=== PATIENT | female | born 1965 | race Caucasian/White ===

== ENCOUNTER 2018-01-06 20:53 | Inpatient (IN) | payer MEDICAID, OTHER ==
--- NOTE | 2018-01-06 21:30 | ED PDOC ---
Arrival/HPI - General Chief Complaint: Abdominal Pain Time Seen by Provider: 01/06/18 21:18 Historian: Patient - History of Present Illness Narrative History of Present Illness (Text): 01/06/18 21:29 Nilay Ibrahim is a 52 year old female, with no significant past medical history, who presents to the Emergency department accompanied by relative complaining of abdominal pain. Relative states patient has been experiencing worsening right- sided abdominal pain since earlier today with multiple episodes of vomiting. Patient also reports she feels dizzy at times. Patient denies any fever, chills , chest pain, shortness of breath, diarrhea, urinary symptoms, back pain, neck pain, headache, or any other complaints. Symptom Onset: Gradual Symptom Course: Unchanged Activities at Onset: Light Context: Home Past Medical History - Provider Review Nursing Documentation Reviewed: Yes - Infectious Disease Hx of Infectious Diseases: None - Cardiac Hx Cardiac Disorders: Yes Hx Hypotension: Yes - Psychiatric Hx Substance Use: No Family/Social History - Physician Review Nursing Documentation Reviewed: Yes Family/Social History: Unknown Family HX Smoking Status: Never Smoked Hx Alcohol Use: No Hx Substance Use: No Allergies/Home Meds Allergies/Adverse Reactions: Allergies No Known Allergies Allergy (Verified 01/06/18 21:20) Home Medications: Home Meds Medication Instructions Recorded Confirmed No Known Home Med 01/06/18 01/06/18 Review of Systems - Physician Review All systems were reviewed & negative as marked: Yes - Review of Systems Constitutional: Normal. absent: Fevers Eyes: Normal ENT: Normal Respiratory: Normal. absent: SOB, Cough Cardiovascular: Normal. absent: Chest Pain Gastrointestinal: Abdominal Pain, Vomiting Genitourinary Female: Normal. absent: Dysuria, Frequency, Hematuria, Urine Output Changes Musculoskeletal: Normal. absent: Back Pain, Neck Pain Skin: Normal. absent: Rash Neurological: Dizziness. absent: Headache Endocrine: Normal Hemo/Lymphatic: Normal Psychiatric: Normal Physical Exam Vital Signs Reviewed: Yes Vital Signs Temp Pulse Resp BP Pulse Ox 01/07/18 01:37 53 L 14 133/64 96 01/07/18 00:49 55 L 20 137/68 94 L 01/06/18 21:24 98.2 F 47 L 16 153/82 H 95 Temperature: Afebrile Blood Pressure: Normal Pulse: Regular Respiratory Rate: Normal Appearance: Positive for: Well-Appearing, Non-Toxic Mental Status: Positive for: Alert and Oriented X 3 - Systems Exam Head: Present: Atraumatic, Normocephalic Pupils: Present: PERRL Extroacular Muscles: Present: EOMI Conjunctiva: Present: Normal Mouth: Present: Moist Mucous Membranes Neck: Present: Normal Range of Motion. No: Meningeal Signs, MIDLINE TENDERNESS , Paraspinal Tenderness Respiratory/Chest: Present: Clear to Auscultation, Good Air Exchange. No: Respiratory Distress, Accessory Muscle Use Cardiovascular: Present: Regular Rate and Rhythm, Normal S1, S2. No: Murmurs Abdomen: Present: Tenderness (Right-sided abdominal tenderness). No: Distention , Peritoneal Signs Back: Present: Normal Inspection. No: CVA Tenderness, Midline Tenderness, Paraspinal Tenderness Upper Extremity: Present: Normal Inspection. No: Cyanosis, Edema Lower Extremity: Present: Normal Inspection. No: Edema Neurological: Present: GCS=15, CN II-XII Intact, Speech Normal, Motor Func Grossly Intact, Normal Sensory Function, Normal Cerebellar Funct Skin: Present: Warm, Dry, Normal Color. No: Rashes Psychiatric: Present: Alert, Oriented x 3, Normal Insight, Normal Concentration Medical Decision Making ED Course and Treatment: 01/06/18 21:29 Impression: 52 year old female brought in for right-sided abdominal pain, vomiting, and dizziness. Plan: -- CT Abdomen and Pelvis with IV contrast -- EKG -- Chest X-ray -- Labs, lipase -- Urinalysis -- Reassess and disposition Progress Notes: 01/06/18 22:16 Reviewed EKG, sinus bradycardia at 46 bpm. Incomplete RBBB. Non-specific ST/T wave changes. 01/07/18 00:04 Chest X-ray reviewed, shows no acute processes. Spoke with [facility] radiologist, regarding CT scan findings. CT Abdomen and Pelvis shows: Lung bases: Mild bibasilar dependent atelectasis. ABDOMEN: Liver: Unremarkable. No mass. Gallbladder and bile ducts: Unremarkable. No calcified stones. No ductal dilation. Pancreas: Unremarkable. No mass. No ductal dilation. Spleen: Unremarkable. No splenomegaly. Adrenals: Unremarkable. No mass. Kidneys and ureters: Unremarkable. No solid mass. No hydronephrosis. Stomach and bowel: Unremarkable. No obstruction. No mucosal thickening. PELVIS: Appendix: Normal appendix. Bladder: Unremarkable. No mass. Reproductive: 22 cm x 18 cm x 14 cm cystic mass with mural nodularity which appears to be arising from the right ovary. IUD in the uterus. Left ovary unremarkable. ABDOMEN and PELVIS: Intraperitoneal space: Small amount of free fluid in the pelvis. No free air. Bones/joints: Levoconvex scoliosis of the lumbar spine. Multilevel degenerative changes. No acute fracture. No dislocation. Soft tissues: Unremarkable. Vasculature: Unremarkable. No abdominal aortic aneurysm. Lymph nodes: Unremarkable. No enlarged lymph nodes. IMPRESSION: 1. 22 cm x 18 cm x 14 cm cystic mass with mural nodularity which appears to be arising from the right ovary. 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 2. Small amount of free fluid in the pelvis. 3. Additional chronic/incidental findings as described above. 01/07/18 00:13 Case discussed with medical historian clinical education consultant, who is aware and agrees with plan. Case discussed with Dr. Alvarenga, who is aware and agrees with plan. Accepts pt in to hospitalist service. Pt will be admitted to [facility] for leukocytosis, abdominal pain, and abdominal mass. - Lab Interpretations Lab Results: 01/06/18 22:13 01/06/18 22:13 Lab Results 01/06/18 22:26: Urine Color Yellow, Urine Appearance Clear, Urine pH 6.0, Ur Specific [place] >= 1.030, Urine Protein Trace H, Urine Glucose (UA) Negative, Urine Ketones 15 H, Urine Blood Trace-intact H, Urine Nitrate Negative, Urine Bilirubin Negative, Urine Urobilinogen 0.2, Ur Leukocyte Esterase Negative, Urine RBC 1 - 3, Urine WBC Negative, Ur Epithelial Cells 0 - 2, Urine Bacteria Trace, Hyaline Casts 0 - 2 01/06/18 22:13: Troponin I < 0.01 01/06/18 22:13: WBC 17.4 H, RBC 5.38, Hgb 15.5, Hct 45.6, MCV 84.8, MCH 28.8, MCHC 34.0, RDW 13.6, Plt Count 246, MPV 10.9 01/06/18 22:13: Sodium 145, Potassium 3.9, Chloride 107, Carbon Dioxide 24, Anion Gap 17, BUN 10, Creatinine 0.6 L, Est GFR ( Amer) > 60, Est GFR ( Non-Af Amer) > 60, Random Glucose 142 H, Calcium 9.2, Total Bilirubin 0.5, AST 16, ALT 19, Alkaline Phosphatase 83, Total Protein 7.7, Albumin 4.3, Globulin 3.4, Albumin/Globulin Ratio 1.3, Lipase 52 I have reviewed the lab results: Yes - RAD Interpretation Radiology Orders: 01/06/18 21:32 CHEST PORTABLE [RAD] Stat 01/06/18 21:33 ABD & PELVIS IV CONTRAST ONLY [CT] Stat [employer] Wing [employer] Flight Engineer: ED Physician, Radiologist - EKG Interpretation Interpreted by ED Physician: Yes Type: 12 lead EKG - Medication Orders Current Medication Orders: Hydromorphone HCl (Dilaudid) 0.5 mg IVP Q6H PRN PRN Reason: Pain, severe (8-10) Last Admin: 01/07/18 04:33 Dose: 0.5 mg MAR Pain Assessment Document 01/07/18 04:33 ED (Rec: 01/07/18 04:34 ED [facility] Pain Reassessment Is this a pain reassessment? Yes Presence of Pain Presence of Pain Yes Pain Scale Used Pain Scale Used Numeric Location Pain Location Body Site Abdomen Description Description Intermittent Intensity of Pain at present 8 Pain Behavior Facial Grimacing Aggravating Factors None Alleviating Factors/Management Medication Techniques Alleviating Factors Medication IVP Administration Document 01/07/18 04:33 ED (Rec: 01/07/18 04:34 [facility]) Charges for Administration # of IVP Administrations 1 Sodium Chloride (Sodium Chloride 0.9%) 1,000 mls @ 50 mls/hr IV .Q20H CELESTINE Last Admin: 01/07/18 01:46 Dose: 50 mls/hr eMAR Start Stop Document 01/07/18 01:46 CNR (Rec: 01/07/18 01:46 CNR [id number]) Intravenous Solution Start Date 01/07/18 Start Time 01:46 Ondansetron HCl (Zofran Inj) 4 mg IVP Q4H PRN PRN Reason: Nausea/Vomiting Last Admin: 01/07/18 04:33 Dose: 4 mg IVP Administration Document 01/07/18 04:33 ED (Rec: 01/07/18 04:33 [facility] Charges for Administration # of IVP Administrations 1 Pantoprazole Sodium (Protonix Ec Tab) 40 mg PO 0600 CELE[facility]INE Discontinued Medications Hydromorphone HCl (Dilaudid) 1 mg IVP STAT STA Stop: 01/07/18 00:35 Last Admin: 01/07/18 00:41 Dose: 1 mg MAR Pain Assessment Document 01/07/18 00:41 CNR (Rec: 01/07/18 00:42 CNR [id number]) Pain Reassessment Is this a pain reassessment? No IVP Administration Document 01/07/18 00:41 CNR (Rec: 01/07/18 00:42 CNR [id number]) Charges for Administration # of IVP Administrations 1 Metronidazole (Flagyl) 500 mg in 100 mls @ 100 mls/hr IVPB STAT STA PRN Reason: Protocol Stop: 01/07/18 01:05 Last Admin: 01/07/18 00:42 Dose: 100 mls/hr eMAR Start Stop Document 01/07/18 00:42 CNR (Rec: 01/07/18 00:42 CNR [id number]) Intravenous Solution Start Date 01/07/18 Start Time 00:42 Ceftriaxone Sodium (Rocephin 1 Gram Ivpb) 1 gm in 100 mls @ 200 mls/hr IV ONCE STA PRN Reason: Protocol Stop: 01/07/18 00:34 Last Admin: 01/07/18 00:14 Dose: 200 mls/hr eMAR Start Stop Document 01/07/18 00:14 CNR (Rec: 01/07/18 00:15 CNR [id number]) Intravenous Solution Start Date 01/07/18 Start Time 00:15 End Date 01/07/18 End time 00:40 Total Infusion Time 25 Ketorolac Tromethamine (Toradol) 30 mg IVP STAT STA Stop: 01/06/18 23:00 Last Admin: 01/06/18 23:01 Dose: 30 mg MAR Pain Assessment Document 01/06/18 23:01 CNR (Rec: 01/06/18 23:01 CNR [id number]) Pain Reassessment Is this a pain reassessment? No IVP Administration Document 01/06/18 23:01 CNR (Rec: 01/06/18 23:01 CNR [id number]) Charges for Administration # of IVP Administrations 1 Morphine Sulfate (Morphine) 4 mg IVP STAT STA Stop: 01/06/18 23:41 Last Admin: 01/06/18 23:43 Dose: 4 mg MAR Pain Assessment Document 01/06/18 23:43 CNR (Rec: 01/06/18 23:43 CNR [id number]) Pain Reassessment Is this a pain reassessment? No IVP Administration Document 01/06/18 23:43 CNR (Rec: 01/06/18 23:43 CNR [id number]) Charges for Administration # of IVP Administrations 1 Ondansetron HCl (Zofran Inj) 4 mg IVP ONCE ONE Stop: 01/06/18 23:41 Last Admin: 01/06/18 23:43 Dose: 4 mg IVP Administration Document 01/06/18 23:43 CNR (Rec: 01/06/18 23:43 CNR [id number]) Charges for Administration # of IVP Administrations 1 Pneumococcal Polyvalent Vaccine (Pneumovax 23 Vaccine) 0.5 ml IM .ONCE ONE Stop: 01/07/18 04:24 - Scribe Statement The provider has reviewed the documentation as recorded by the Scribashkan Andersen All medical record entries made by the Scribashkan were at my direction and personally dictated by me. I have reviewed the chart and agree that the record accurately reflects my personal performance of the history, physical exam, medical decision making, and the department course for this patient. I have also personally directed, reviewed, and agree with the discharge instructions and disposition. Disposition/Present on Arrival - Present on Arrival Any Indicators Present on Arrival: No History of DVT/PE: No History of Uncontrolled Diabetes: No Urinary Catheter: No History of Decub. Ulcer: No History Surgical Site Infection Following: None - Disposition Have Diagnosis and Disposition been Completed?: Yes Diagnosis: Abdominal pain, Leukocytosis, Ovarian mass, right Disposition: HOSPITALIZED Disposition Time: 00:29 Patient Problems: Current Active Problems Problem Status Onset Abdominal pain Acute Leukocytosis Acute Ovarian mass, right Acute Condition: STABLE
[2018-01-06] MEDS ORDERED: Iohexol 350 MG/100 ML VIAL ONE (21:40)
[2018-01-06 22:16] LABS: HEMOGLOBIN 15.5 g/dL (12.0-16.0); MEAN CELL VOLUME 84.8 fl (80.0-105.0); MEAN CORPUSCULAR HEMOGLOBIN 28.8 pg (25.0-35.0); MEAN PLATELET VOLUME 10.9 fl (7.0-11.0); RBC 5.38 10^6/uL (3.5-6.1); RED CELL DISTRIBUTION WIDTH 13.6 % (11.5-14.5); WHITE BLOOD COUNT 17.4 10^3/ul (4.5-11.0)
[2018-01-06 22:26] LABS: ALB/GLOB RATIO 1.3 (1.1-1.8); ALBUMIN 4.3 g/dL (3.0-4.8); ALT/SGPT 19 U/L (7-56); AST/SGOT 16 U/L (14-36); BLOOD UREA NITROGEN 10 mg/dL (7-21); CALCIUM 9.2 mg/dL (8.4-10.5); GFR AFRICAN-AMERICAN > 60; GFR NON-AFRICAN AMERICAN > 60; LIPASE 52 U/L (23-300)
[2018-01-06 22:31] LABS: URINE APPEARANCE CLEAR (CLEAR); URINE BILIRUBIN NEGATIVE (NEGATIVE); URINE BLOOD TRACE-INTACT (NEGATIVE); URINE COLOR YELLOW (YELLOW); URINE GLUCOSE (UA) NEGATIVE (NEGATIVE); URINE LEUKOCYTE ESTERASE NEGATIVE Leu/uL (NEGATIVE); URINE PROTEIN TRACE mg/dL (<30 mg/dL); URINE UROBILINOGEN 0.2 E.U./dL (<1 E.U./dL)
[2018-01-06 22:37] LABS: URINE BACTERIA TRACE (NEG); URINE EPITHELIAL CELLS 0 - 2 /hpf (0-5); URINE HYALINE CAST 0 - 2 /hpf; URINE WBC NEGATIVE /hpf (0-6)
[2018-01-06] MEDS ORDERED: Morphine 4 mg/ml ISec IVP STA (23:40)
[2018-01-06] MEDS ORDERED: Morphine 4 mg/ml ISec ONE (23:42)
[2018-01-07] MEDS ORDERED: cefTRIAXone 1 gm 1 GM/100 ML BAG IV STA (00:05)
[2018-01-07] MEDS ORDERED: metroNIDAZOLE IV 500 mg/100 ml 500 MG/100 ML BAG IVPB STA (00:06)
[2018-01-07] MEDS ORDERED: HYDROmorphone 1 mg/ml ISec IVP STA (00:34)
[2018-01-07] MEDS: Sodium Chloride 0.9% 1,000 ML IV SCH ×2 (01:46→22:02)
--- NOTE | 2018-01-07 02:36 | CP.PCM.HP ---
<MiltonMiguelito Marley - Last Filed: 01/07/18 05:28> History of Present Illness - History of Present Illness History of Present Illness: Miguelito Rose D.O. PGY-1, Internal Medicine Resident, History and Physical Nilay Ibrahim is a 52 year old female, with no significant past medical history, who presents to the Emergency department accompanied by relative complaining of abdominal pain. Patient has been experiencing 10/10 worsening right-sided abdominal pain since earlier today with multiple episodes of vomiting. Pt reports that the contents are non bloody and non bilious. Patient also reports she feels dizzy. Patient denies any fever, chills, chest pain, shortness of breath, diarrhea, urinary symptoms, back pain, neck pain, headache, or any other complaints. Pt reports taking 2 Alleve followed by 2 Advil at about 2pm neither of which helped. Pt denies sick contacts, or eating anything new. 12 point review of systems negative. PMH: denies any significant hx PSH: denies FH: denies Social Hx: occasional smoker, occasional alcohol, denies drugs, lives with her 2 children Allergies: NKDA Meds: denies Present on Admission - Present on Admission Any Indicators Present on Admission: No Past Patient History - Infectious Disease Hx of Infectious Diseases: None - Past Social History Smoking Status: Current Some Days Smoker - CARDIAC Hx Cardiac Disorders: Yes Hx Hypotension: Yes - PSYCHIATRIC Hx Substance Use: No - SURGICAL HISTORY Hx Surgeries: No Meds Allergies/Adverse Reactions: Allergies Allergy/AdvReac Type Severity Reaction Status Date / Time No Known Allergies Allergy Verified 01/06/18 21:20 Physical Exam - Head Exam Head Exam: ATRAUMATIC - Eye Exam Eye Exam: EOMI, PERRL - ENT Exam ENT Exam: Mucous Membranes Moist - Neck Exam Neck exam: Positive for: Normal Inspection - Respiratory Exam Respiratory Exam: Clear to Auscultation Bilateral, NORMAL BREATHING PATTERN - Cardiovascular Exam Cardiovascular Exam: REGULAR RHYTHM, RRR, +S1, +S2 - GI/Abdominal Exam GI & Abdominal Exam: Normal Bowel Sounds, Soft, Tenderness. absent: Guarding, Rebound, Rigid - Extremities Exam Extremities exam: Positive for: full ROM, normal inspection. Negative for: calf tenderness - Neurological Exam Neurological exam: Alert, CN II-XII Intact, Oriented x3 - Skin Skin Exam: Normal Color Results - Vital Signs Recent Vital Signs: Last Vital Signs Temp 98.2 F 01/06/18 21:24 Pulse 53 L 01/07/18 01:37 Resp 14 01/07/18 01:37 BP 133/64 01/07/18 01:37 Pulse Ox 96 01/07/18 01:37 - Labs Result Diagrams: 01/06/18 22:13 01/06/18 22:13 Assessment & Plan - Assessment and Plan (Free Text) Assessment: Nilay Ibrahim is a 52 year old female, with no significant past medical history, who presents to the Emergency department accompanied by relative complaining of abdominal pain. Pt currently is being treated for abdominal pain, leukocytosis, and an abdominal mass. Plan: Abdominal pain, vomiting -ordered c. diff panel -diladid 0.5mg q4 for pain -lipase 52 -start Cipro -start metronidazole -trops 0.01, continue to trend -consult PROPOS[employer] WRITER Onc, Dr Vo -consult ID, -CMP ordered -Lipid panel ordered, awaiting results -ordered Mg, Phos, awaiting results -ordered TSH, awaiting results -ordered urine culture Leukocytosis -WBC 17.4 -ordered blood cx, awaiting results -started cipro and metronidazole -ordered c. diff -continue to keep pt hydrated, IV NS 50ml/hr -ID consulted, Dr Acosta -CBC ordered Yellow Sputum Production -start Ceftriaxone -start vanc Abdominal mass -cystic mass arising from the right ovary, most likely incidental finding -continue pain management -order 19-9, Elevated glucose -glucose 142 -HA1C ordered Pt was seen, examined, and case was discussed at length with attending physician Dr Alvarenga. Miguelito Rose PGY-1 <Merced Alvarenga - Last Filed: 01/07/18 05:59> Results - Vital Signs Recent Vital Signs: Last Vital Signs Temp 97.8 F 01/07/18 04:16 Pulse 49 L 01/07/18 04:16 Resp 20 01/07/18 04:16 BP 141/57 L 01/07/18 04:16 Pulse Ox 96 01/07/18 01:37 - Labs Result Diagrams: 01/06/18 22:13 01/06/18 22:13 Attending/Attestation - Attestation I have personally seen and examined this patient.: Yes I have fully participated in the care of the patient.: Yes I have reviewed all pertinent clinical information: Yes Notes (Text): 01/07/18 05:52 Patient was seen when she was in bed # 4 in the ER. Agree with history, physical examination, assessment and plan. Following should be noted. RLQ abdominal pain since 1 PM . Similar pain in the past. 10---->8 now. No radiation. Sharp , continuous. Nausea. Vomiting. Dizzy. Voluntary weight loss. No anorexia. Sinus bradycardia, incomplete RBBB. Leukocytosis. Hyperglycemia. Small free fluid in pelvis IUD Right ovarian mass, [id number].? cystadenocarcinoma. PMH: Obesity. HTN. IUD FHx heart disease.
[2018-01-07] MEDS ORDERED: Pneumococcal 23-Valent Vaccine IM ONE (04:23)
[2018-01-07] MEDS: HYDROmorphone 0.5 mg/0.5 ml ISec IVP PRN ×4 (04:33→22:17)
--- NOTE | 2018-01-07 05:35 | CP.PCM.CON ---
Addendum entered and electronically signed by Miguelito Rose DO 01/07/18 06: 03: please disregard this note Original Note: <Miguelito Rose - Last Filed: 01/07/18 05:39> History of Present Illness - History of Present Illness History of Present Illness: Miguelito Rose PGY-1 Internal Medicine Resident, ICU consult note for Dr Fernandes. Ms. Valverde is a 73-year-old female the past medical history of COPD on home O2, asthma, bronchitis, DM 2, CAD S/P 8 stents, and hyperlipidemia who presented to the ED with shortness of breath, cough, blood tinged sputum for 2 days on December 26. Pt underwent treatment in the ICU for hypoxic respiratory failure and NSTEMI. Once pt was stable sbe was transferred to tCU on 12/31/17. Today a rapid respince was called at around 9:53pm by the nursing staff because the pt was non responsive. She had been becoming non responsive through the day. Pt would not respond to painful stimuli. Per nursing, pt was on BiPAP throughout the day, but now she was desating into the lower 80's with BiPAP. The decision was made to intubate her and transfer her to the ICU. 12 point ROS was elicited but not obtained due mental status. PMH: As above PSH: Unremarkable Meds: As per MAR Allergies: As noted on [employer] SHX: Former smoker, occasional alcohol use, denies drug use. On home O2, all day. Uses BiPAP at night. FH X: Heart disease and diabetes Past Patient History - Infectious Disease Hx of Infectious Diseases: None - Past Medical History & Family History Past Medical History?: No - Past Social History Smoking Status: Current Some Days Smoker - CARDIAC Hx Cardiac Disorders: Yes Hx Hypotension: Yes - MUSCULOSKELETAL/RHEUMATOLOGICAL Hx Falls: No - PSYCHIATRIC Hx Substance Use: No - SURGICAL HISTORY Hx Surgeries: No Meds Allergies/Adverse Reactions: Allergies Allergy/AdvReac Type Severity Reaction Status Date / Time No Known Allergies Allergy Verified 01/06/18 21:20 - Medications Medications: Current Medications Hydromorphone HCl (Dilaudid) 0.5 mg IVP Q6H PRN PRN Reason: Pain, severe (8-10) Last Admin: 01/07/18 04:33 Dose: 0.5 mg Sodium Chloride (Sodium Chloride 0.9%) 1,000 mls @ 50 mls/hr IV .Q20H [facility] Last Admin: 01/07/18 01:46 Dose: 50 mls/hr Ondansetron HCl (Zofran Inj) 4 mg IVP Q4H PRN PRN Reason: Nausea/Vomiting Last Admin: 01/07/18 04:33 Dose: 4 mg Pantoprazole Sodium (Protonix Ec Tab) 40 mg PO 0600 [facility] Physical Exam - Constitutional Appears: In Acute Distress, Chronically Ill - Head Exam Head Exam: ATRAUMATIC, NORMAL INSPECTION, NORMOCEPHALIC - Eye Exam Eye Exam: EOMI - ENT Exam ENT Exam: Mucous Membranes Moist - Neck Exam Neck exam: Positive for: Normal Inspection - Respiratory Exam Respiratory Exam: Clear to Auscultation Bilateral, NORMAL BREATHING PATTERN - Cardiovascular Exam Cardiovascular Exam: REGULAR RHYTHM, RRR, +S1, +S2 - GI/Abdominal Exam GI & Abdominal Exam: Normal Bowel Sounds, Soft, Tenderness - Extremities Exam Extremities exam: Negative for: calf tenderness, pedal edema - Back Exam Back exam: NORMAL INSPECTION. absent: CVA tenderness (L), CVA tenderness (R) - Neurological Exam Neurological exam: Alert, CN II-XII Intact, Oriented x3 - Psychiatric Exam Psychiatric exam: Normal Affect, Normal Mood - Skin Skin Exam: Normal Color Results - Vital Signs Recent Vital Signs: Last Vital Signs Temp 97.8 F 01/07/18 04:16 Pulse 49 L 01/07/18 04:16 Resp 20 01/07/18 04:16 BP 141/57 L 01/07/18 04:16 Pulse Ox 96 01/07/18 01:37 - Labs Result Diagrams: 01/06/18 22:13 01/06/18 22:13 Assessment & Plan - Assessment and Plan (Free Text) Assessment: 73 yo female with a pertinent medical history of COPD and recent NSTEMI under ICU management for hypercapneic hypoxic respiratory failure needing propofol drip 2/2 AMS. R/o AMI consider infectious causes consider CVA Hx asthma, bronchitis, DM2, CAD s/p 8 stents, HLD Plan: Plan: Plan: -intubated with propofol drip, vent settings PRVC, TV 350, RR 16, PEEP 5, FiO2 60 -EKG -trops stat, and next AM -blood cultures ordered -urine cultures ordered -ordered ABG -stat CMP, CBC -AM labs ordered -will follow up after further information is obtained Case s/d with Dr Colette Rose PGY-1 <Merced Alvarenga - Last Filed: 01/09/18 22:20> Results - Vital Signs Recent Vital Signs: Last Vital Signs Temp 98.3 F 01/09/18 06:00 Pulse 68 01/09/18 10:00 Resp 20 01/09/18 06:00 BP 106/50 L 01/09/18 06:00 Pulse Ox 93 L 01/09/18 06:00 - Labs Result Diagrams: 01/09/18 06:00 01/09/18 06:00 Labs: Laboratory Results - last 24 hr 01/07/18 01/08/18 01/08/18 21:10 07:13 11:25 WBC RBC Hgb Hct MCV MCH MCHC RDW Plt Count MPV Gran % Lymph % (Auto) Davis % (Auto) Eos % (Auto) Baso % (Auto) Gran # Lymph # (Auto) Davis # (Auto) Eos # (Auto) Baso # (Auto) Sodium Potassium Chloride Carbon Dioxide Anion Gap BUN Creatinine Est GFR ( Amer) Est GFR (Non-Af Amer) POC Glucose (mg/dL) 116 H 126 H 144 H Random Glucose Calcium Phosphorus Magnesium Total Bilirubin AST ALT Alkaline Phosphatase Total Protein Albumin Globulin Albumin/Globulin Ratio 01/08/18 01/08/18 01/09/18 16:03 21:29 06:00 WBC 15.3 H RBC 4.41 Hgb 12.4 Hct 38.4 MCV 87.1 MCH 28.1 MCHC 32.3 RDW 13.6 Plt Count 212 MPV 11.0 Gran % 82.9 H Lymph % (Auto) 10.1 L Davis % (Auto) 6.6 H Eos % (Auto) 0.3 L Baso % (Auto) 0.1 Gran # 12.71 H Lymph # (Auto) 1.5 Davis # (Auto) 1.0 H Eos # (Auto) 0.1 Baso # (Auto) 0.01 Sodium Potassium Chloride Carbon Dioxide Anion Gap BUN Creatinine Est GFR ( Amer) Est GFR (Non-Af Amer) POC Glucose (mg/dL) 105 120 H Random Glucose Calcium Phosphorus Magnesium Total Bilirubin AST ALT Alkaline Phosphatase Total Protein Albumin Globulin Albumin/Globulin Ratio 01/09/18 01/09/18 06:00 07:11 WBC RBC Hgb Hct MCV MCH MCHC RDW Plt Count MPV Gran % Lymph % (Auto) Davis % (Auto) Eos % (Auto) Baso % (Auto) Gran # Lymph # (Auto) Davis # (Auto) Eos # (Auto) Baso # (Auto) Sodium 142 Potassium 3.6 Chloride 105 Carbon Dioxide 27 Anion Gap 13 BUN 9 Creatinine 0.6 L Est GFR ( Amer) > 60 Est GFR (Non-Af Amer) > 60 POC Glucose (mg/dL) 101 Random Glucose 97 Calcium 8.1 L Phosphorus 2.1 L Magnesium 1.9 Total Bilirubin 0.7 AST 16 ALT 20 Alkaline Phosphatase 63 Total Protein 6.5 Albumin 3.5 Globulin 3.0 Albumin/Globulin Ratio 1.1 Attending/Attestation - Attestation I have personally seen and examined this patient.: Yes I have fully participated in the care of the patient.: Yes I have reviewed all pertinent clinical information: Yes
[2018-01-07] MEDS: Pantoprazole 40 mg EC Tab PO SCH (05:56)
[2018-01-07 06:31] LABS: BASO # 0.02 K/mm3 (0.0-2.0); BASO % 0.1 % (0.0-3.0); EOS % 0.1 % (1.5-5.0); GRAN # 17.1 (1.4-6.5); GRAN % 89.4 % (50.0-68.0); HEMOGLOBIN 14.5 g/dL (12.0-16.0); LYMPH # 1.3 (1.2-3.4); LYMPH % 6.8 % (22.0-35.0); MEAN CELL VOLUME 86.1 fl (80.0-105.0); MEAN CORPUSCULAR HEMOGLOBIN 28.5 pg (25.0-35.0); MEAN CORPUSCULAR HGB CONC 33.1 g/dl (31.0-37.0); MEAN PLATELET VOLUME 11.5 fl (7.0-11.0); MONO # 0.7 (0.1-0.6); MONO % 3.6 % (1.0-6.0); RBC 5.09 10^6/uL (3.5-6.1); RED CELL DISTRIBUTION WIDTH 13.6 % (11.5-14.5); WHITE BLOOD COUNT 19.1 10^3/ul (4.5-11.0)
[2018-01-07 06:59] LABS: TROPONIN I 0.01 ng/mL
[2018-01-07 07:00] LABS: ALB/GLOB RATIO 1.2 (1.1-1.8); ALBUMIN 3.8 g/dL (3.0-4.8); ALT/SGPT 21 U/L (7-56); AST/SGOT 15 U/L (14-36); BLOOD UREA NITROGEN 10 mg/dL (7-21); CALCIUM 8.5 mg/dL (8.4-10.5); GFR AFRICAN-AMERICAN > 60; GFR NON-AFRICAN AMERICAN > 60
--- NOTE | 2018-01-07 08:41 | RAD ---
Date of service: 01/06/2018 HISTORY: Abdominal pain COMPARISON: No prior. FINDINGS: LUNGS: The lungs are clear. There are low lung volumes. PLEURA: No significant pleural effusion identified, no pneumothorax apparent. CARDIOVASCULAR: Normal. OSSEOUS STRUCTURES: No significant abnormalities. VISUALIZED UPPER ABDOMEN: Normal. OTHER FINDINGS: None. IMPRESSION: No active pulmonary disease. Low lung volumes may be related to poor inspiratory effort.
--- NOTE | 2018-01-07 08:45 | CT ---
Date of service: 01/06/2018 PROCEDURE: CT Abdomen and Pelvis with contrast HISTORY: abdominal pain COMPARISON: None. TECHNIQUE: Contrast dose: 100 cc of Omni 350 Radiation dose: Total exam DLP = 1325 mGy-cm. This CT exam was performed using one or more of the following dose reduction techniques: Automated exposure control, adjustment of the mA and/or kV according to patient size, and/or use of iterative reconstruction technique. FINDINGS: LOWER THORAX: Unremarkable. LIVER: Unremarkable. No gross lesion or ductal dilatation. GALLBLADDER AND BILE DUCTS: Unremarkable. PANCREAS: Unremarkable. No gross lesion or ductal dilatation. SPLEEN: Unremarkable. ADRENALS: Unremarkable. No mass. KIDNEYS AND URETERS: Unremarkable. No hydronephrosis. No solid mass. VASCULATURE: Unremarkable. No aortic aneurysm. BOWEL: Unremarkable. No obstruction. No gross mural thickening. APPENDIX: Normal appendix. PERITONEUM: Unremarkable. No free fluid. No free air. LYMPH NODES: Unremarkable. No enlarged lymph nodes. BLADDER: Unremarkable. REPRODUCTIVE: There is a large cystic mass that appears to arise from the right ovary. This measures 22 mm wide by 13.6 cm AP by 18 cm in height. This is suspicious for an ovarian cystadenocarcinoma BONES: No acute fracture. OTHER FINDINGS: The report concurs with the preliminary [facility] report IMPRESSION: There is a large cystic mass that appears to arise from the right ovary. This measures 22 mm wide by 13.6 cm AP by 18 cm in height. This is suspicious for an ovarian cystadenocarcinoma
--- NOTE | 2018-01-07 09:29 | CARD ---
APPROVED REPORT Date of service: 01/06/2018 EKG Measurement Heart [id number] VT 144P31 [id number] <Conclusion> Marked sinus bradycardia Incomplete right bundle branch block
[2018-01-07 10:31] LABS: URINE BILIRUBIN NEGATIVE (NEGATIVE); URINE BLOOD SMALL (NEGATIVE); URINE GLUCOSE (UA) NEGATIVE (NEGATIVE); URINE LEUKOCYTE ESTERASE NEGATIVE Leu/uL (NEGATIVE); URINE PROTEIN TRACE mg/dL (<30 mg/dL); URINE UROBILINOGEN 0.2 E.U./dL (<1 E.U./dL)
[2018-01-07 10:39] LABS: URINE APPEARANCE SL CLOUDY (CLEAR); URINE COLOR YELLOW (YELLOW)
[2018-01-07 10:42] LABS: URINE AMORPHOUS SEDIMENT SMALL; URINE BACTERIA LARGE (NEG); URINE RBC 0 - 2 /hpf (0-2); URINE WBC 0 - 2 /hpf (0-6)
[2018-01-07 12:57] LABS: TROPONIN I < 0.01 ng/mL
[2018-01-07] MEDS: Piperacillin/Tazobact 3.375 gm 100 ML IVPB SCH ×3 (13:33→23:48)
--- NOTE | 2018-01-07 14:50 | CON ---
DATE: 01/07/2018 LOCATION: The patient was seen earlier this morning in room 360. CHIEF COMPLAINT: Right abdominal pain times several days. HISTORY OF PRESENT ILLNESS: This is a 52-year-old female, morbid obesity with BMI of 41 with past medical history which is noncontributory. She was admitted with abdominal pain. Abdominal pain is right sided and associated with nausea and vomiting. No diarrhea or constipation. No dysuria or frequency. No headaches or blurred vision, neck pain or sore throat. PAST MEDICAL HISTORY: Significant for morbid obesity with a BMI of 41. PAST SURGICAL HISTORY: Noncontributory. ALLERGIES: THE PATIENT HAS NO KNOWN ALLERGIES. MEDICATIONS: Takes no medications at home. PHYSICAL EXAMINATION: GENERAL: The patient is in bed, no acute distress. VITAL SIGNS: Temperature of 98, blood pressure is 106/50, respiratory rate of 20, heart rate of 55, 94% saturation. HEENT: Examination of HEENT is unremarkable. NECK: Supple. LUNGS: Have decreased breath sounds. HEART: Normal S1 and S2. ABDOMEN: Soft, nontender. There is mild tenderness in the right lower abdomen. No rebound or guarding. LABORATORY DATA: Laboratory examination reveals the patient's white count of 17,000, 89% granulocytosis. Chemistries reveals a BUN of 10, creatinine 0.6. CA 125 antigen is 6.3. LFTs are normal. LVH is normal. Elevated glucose of 122. Urinalysis: Negative wbc's, negative leukocyte esterase, negative nitrites, there is trace of proteinuria. The patient also had a CAT scan of abdomen and pelvis, which reveals a questionable ovarian mass consistent with possibly cystadenocarcinoma. The ovarian mass is a large mass, appears to be tania from the right ovary consistent with where her pain is. ASSESSMENT AND PLAN: A 52-year-old female, morbid obesity, body mass index of 41, presenting with abdominal pain. #1 is leukocytosis and ovarian mass, questionable cystadenocarcinoma by CAT scan. Must rule out . We will treat the patient with Zosyn and doxycycline. We will order the human immunodeficiency virus test and sexually transmitted disease workup. Recommend a Gynecology consultation. The patient had a chest x-ray, which was negative. I will make further recommendations upon availability of initial results. We will follow with you. Vernon Walton MD [facility] # [id number]
[2018-01-08 00:47] VITALS: RESP 20
[2018-01-08] MEDS: HYDROmorphone 0.5 mg/0.5 ml ISec IVP PRN ×2 (05:00→08:26)
[2018-01-08] MEDS: Piperacillin/Tazobact 3.375 gm 100 ML IVPB SCH ×4 (05:24→23:55)
[2018-01-08] MEDS: Pantoprazole 40 mg EC Tab PO SCH (05:24)
[2018-01-08 08:04] LABS: BASO # 0.01 K/mm3 (0.0-2.0); BASO % 0.1 % (0.0-3.0); EOS % 0.1 % (1.5-5.0); GRAN # 14.23 (1.4-6.5); GRAN % 84.8 % (50.0-68.0); HEMOGLOBIN 13.1 g/dL (12.0-16.0); LYMPH # 1.6 (1.2-3.4); LYMPH % 9.5 % (22.0-35.0); MEAN CELL VOLUME 87.2 fl (80.0-105.0); MEAN CORPUSCULAR HEMOGLOBIN 28.4 pg (25.0-35.0); MEAN CORPUSCULAR HGB CONC 32.6 g/dl (31.0-37.0); MONO # 0.9 (0.1-0.6); MONO % 5.5 % (1.0-6.0); RBC 4.61 10^6/uL (3.5-6.1); RED CELL DISTRIBUTION WIDTH 13.7 % (11.5-14.5); WHITE BLOOD COUNT 16.8 10^3/ul (4.5-11.0)
[2018-01-08 08:33] LABS: ALB/GLOB RATIO 1.2 (1.1-1.8); ALBUMIN 3.6 g/dL (3.0-4.8); ALT/SGPT 16 U/L (7-56); AST/SGOT 11 U/L (14-36); BLOOD UREA NITROGEN 8 mg/dL (7-21); CALCIUM 8.1 mg/dL (8.4-10.5); GFR AFRICAN-AMERICAN > 60; GFR NON-AFRICAN AMERICAN > 60
[2018-01-08] MEDS ORDERED: Potassium Chloride 40 mEq/30 ml LIQ UD PO ONE (09:26)
--- NOTE | 2018-01-08 09:38 | CARD ---
APPROVED REPORT Date of service: 01/08/2018 EKG Measurement Heart [id number] CO 132P36 [id number] <Conclusion> Normal sinus rhythm Normal ECG
[2018-01-08] MEDS ORDERED: Morphine 2 mg/ml ISec IVP PRN (12:46)
--- NOTE | 2018-01-08 12:49 | CP.PCM.CON ---
History of Present Illness - History of Present Illness History of Present Illness: 52yo female presented to [facility] [place]/o abd pain. Pt reports that since admission , pain has decreased. Pt reports only mild uncomforable at this time. Denies F /C, N/V, abnormal bleeding. Pt had T done which reported large pelvic mass ~22cm. Report stated supicious for cystic adenocarcinoma. Conversely, patient's CA-125 level was not elevated. Past Patient History - Infectious Disease Hx of Infectious Diseases: None - Past Medical History & Family History Past Medical History?: No - Past Social History Smoking Status: Current Some Days Smoker - CARDIAC Hx Cardiac Disorders: Yes Hx Hypotension: Yes - MUSCULOSKELETAL/RHEUMATOLOGICAL Hx Falls: No - PSYCHIATRIC Hx Substance Use: No - SURGICAL HISTORY Hx Surgeries: No Meds Allergies/Adverse Reactions: Allergies Allergy/AdvReac Type Severity Reaction Status Date / Time No Known Allergies Allergy Verified 01/06/18 21:20 - Medications Medications: Current Medications Doxycycline Hyclate (Doryx) 100 mg PO Q12 CELESTINE PRN Reason: Protocol Stop: 01/16/18 13:07 Last Admin: 01/08/18 10:31 Dose: 100 mg Hydromorphone HCl (Dilaudid) 0.5 mg IVP Q3H PRN PRN Reason: Pain, severe (8-10) Last Admin: 01/08/18 08:26 Dose: 0.5 mg Sodium Chloride (Sodium Chloride 0.9%) 1,000 mls @ 50 mls/hr IV .Q20H CELESTINE Last Admin: 01/07/18 22:02 Dose: 50 mls/hr Piperacillin Sod/Tazobactam Sod (Zosyn 3.375 In Ns 100ml) 100 mls @ 200 mls/hr IVPB Q6 CELESTINE PRN Reason: Protocol Stop: 01/15/18 13:07 Last Admin: 01/08/18 12:18 Dose: 200 mls/hr Ketorolac Tromethamine (Toradol) 15 mg IVP Q6H PRN PRN Reason: Pain, moderate (4-7) Ondansetron HCl (Zofran Inj) 4 mg IVP Q4H PRN PRN Reason: Nausea/Vomiting Last Admin: 01/08/18 08:27 Dose: 4 mg Pantoprazole Sodium (Protonix Ec Tab) 40 mg PO 0600 CELESTINE Last Admin: 01/08/18 05:24 Dose: 40 mg Physical Exam - Constitutional Appears: Well, No Acute Distress - Head Exam Head Exam: NORMAL INSPECTION - Eye Exam Eye Exam: Normal appearance - ENT Exam ENT Exam: Mucous Membranes Moist - Respiratory Exam Respiratory Exam: Clear to Auscultation Bilateral, NORMAL BREATHING PATTERN - Cardiovascular Exam Cardiovascular Exam: REGULAR RHYTHM - GI/Abdominal Exam Additional comments: soft,NT,ND. Obese. No rebound, no gaurding. Results - Vital Signs Recent Vital Signs: Last Vital Signs Temp 98.6 F 01/08/18 06:00 Pulse 60 01/08/18 06:00 Resp 20 01/08/18 06:00 BP 108/50 L 01/08/18 06:00 Pulse Ox 95 01/08/18 06:00 - Labs Result Diagrams: 01/08/18 07:41 01/08/18 07:41 Labs: Laboratory Results - last 24 hr 01/07/18 01/07/18 01/07/18 12:30 13:00 13:00 WBC RBC Hgb Hct MCV MCH MCHC RDW Plt Count MPV Gran % Lymph % (Auto) Winn % (Auto) Eos % (Auto) Baso % (Auto) Gran # Lymph # (Auto) Winn # (Auto) Eos # (Auto) Baso # (Auto) Sodium Potassium Chloride Carbon Dioxide Anion Gap BUN Creatinine Est GFR ( Amer) Est GFR (Non-Af Amer) POC Glucose (mg/dL) Random Glucose Hemoglobin A1c Calcium Phosphorus Magnesium Total Bilirubin AST ALT Alkaline Phosphatase Troponin I < 0.01 Total Protein Albumin Globulin Albumin/Globulin Ratio TSH 3rd Generation RPR Nonreactive HIV 1&2 Ag/Ab, 4th Gen Nonreactive 01/07/18 01/08/18 01/08/18 15:41 07:41 07:41 WBC 16.8 H RBC 4.61 Hgb 13.1 Hct 40.2 MCV 87.2 MCH 28.4 MCHC 32.6 RDW 13.7 Plt Count 211 MPV 11.0 Gran % 84.8 H Lymph % (Auto) 9.5 L Winn % (Auto) 5.5 Eos % (Auto) 0.1 L Baso % (Auto) 0.1 Gran # 14.23 H Lymph # (Auto) 1.6 Winn # (Auto) 0.9 H Eos # (Auto) 0.0 Baso # (Auto) 0.01 Sodium 142 Potassium 3.5 L Chloride 105 Carbon Dioxide 28 Anion Gap 13 BUN 8 Creatinine 0.7 Est GFR ( Amer) > 60 Est GFR (Non-Af Amer) > 60 POC Glucose (mg/dL) 113 H Random Glucose 124 H Hemoglobin A1c Calcium 8.1 L Phosphorus 2.4 L Magnesium 1.9 Total Bilirubin 0.8 AST 11 L D ALT 16 Alkaline Phosphatase 63 Troponin I Total Protein 6.6 Albumin 3.6 Globulin 3.0 Albumin/Globulin Ratio 1.2 TSH 3rd Generation RPR HIV 1&2 Ag/Ab, 4th Gen 01/08/18 01/08/18 07:41 07:41 WBC RBC Hgb Hct MCV MCH MCHC RDW Plt Count MPV Gran % Lymph % (Auto) Winn % (Auto) Eos % (Auto) Baso % (Auto) Gran # Lymph # (Auto) Winn # (Auto) Eos # (Auto) Baso # (Auto) Sodium Potassium Chloride Carbon Dioxide Anion Gap BUN Creatinine Est GFR ( Amer) Est GFR (Non-Af Amer) POC Glucose (mg/dL) Random Glucose Hemoglobin A1c 5.8 Calcium Phosphorus Magnesium Total Bilirubin AST ALT Alkaline Phosphatase Troponin I Total Protein Albumin Globulin Albumin/Globulin Ratio TSH 3rd Generation 1.21 RPR HIV 1&2 Ag/Ab, 4th Gen - Imaging and Cardiology CT scan - pelvis Status: Image reviewed by me, Report reviewed by me Assessment & Plan - Assessment and Plan (Free Text) Assessment: Large complex adnexal mass, suspicious for adenoCA. Normal CA-125. Pt asymptomatic a this time. Plan: I examined patient and discussed with patient CT findings. I discussed with patient the differential diagnosis of these findings including benign ovarian neoplasms as well as possibility of a malignancy. I discussed with patient general information regarding ovarian cancer.I discussed with patient that she will most likely need surgery for this mass in the near future. Because patient is asymptomatic at this time, and radiologic findings are significantly concerning for carcinoma, patient should have F/U at tertiary care center with MACHINE HELPER Oncology services. I discussed this plan with patient and all patient questions answered. One option for referral is Dr. levy Harding. Office number is . - Date & Time Date: 01/08/18 Time: 12:56
[2018-01-08] MEDS ORDERED: Potassium Phosphate 15 MMOLE in Sodium Chloride 0.9% 250 ML IVPB ONE (13:41)
--- NOTE | 2018-01-08 14:20 | CP.PCM.PN ---
Subjective - Date & Time of Evaluation Date of Evaluation: 01/08/18 Time of Evaluation: 10:30 - Subjective Subjective: Still with abdominal pain, no fevers. Objective - Vital Signs/Intake and Output Vital Signs (last 24 hours): Temp Pulse Resp BP Pulse Ox 98.6 F 60 20 108/50 L 95 01/08/18 06:00 01/08/18 06:00 01/08/18 06:00 01/08/18 06:00 01/08/18 06:00 Intake and Output: 01/08/18 01/08/18 06:59 18:59 Intake Total 1040 Balance 1040 - Medications Medications: Current Medications Docusate Sodium (Colace) 100 mg PO DAILY [facility] Doxycycline Hyclate (Doryx) 100 mg PO Q12 CELESTINE PRN Reason: Protocol Stop: 01/16/18 13:07 Last Admin: 01/08/18 10:31 Dose: 100 mg Sodium Chloride (Sodium Chloride 0.9%) 1,000 mls @ 50 mls/hr IV .Q20H [facility] Last Admin: 01/07/18 22:02 Dose: 50 mls/hr Piperacillin Sod/Tazobactam Sod (Zosyn 3.375 In Ns 100ml) 100 mls @ 200 mls/hr IVPB Q6 CELESTINE PRN Reason: Protocol Stop: 01/15/18 13:07 Last Admin: 01/08/18 12:18 Dose: 200 mls/hr Potassium Phosphate 15 mmole/ (Sodium Chloride) 255 mls @ 42.5 mls/hr IVPB ONCE ONE Stop: 01/08/18 19:40 Ketorolac Tromethamine (Toradol) 15 mg IVP Q6H PRN PRN Reason: Pain, moderate (4-7) Morphine Sulfate (Morphine) 2 mg IVP Q4H PRN PRN Reason: Pain, severe (8-10) Ondansetron HCl (Zofran Inj) 4 mg IVP Q4H PRN PRN Reason: Nausea/Vomiting Last Admin: 01/08/18 08:27 Dose: 4 mg Pantoprazole Sodium (Protonix Ec Tab) 40 mg PO 0600 CELESTINE Last Admin: 01/08/18 05:24 Dose: 40 mg - Labs Labs: 01/08/18 07:41 01/08/18 07:41 - Constitutional Appears: Non-toxic, Chronically Ill - Head Exam Head Exam: NORMAL INSPECTION - Respiratory Exam Respiratory Exam: Decreased Breath Sounds - Cardiovascular Exam Cardiovascular Exam: +S1, +S2 - GI/Abdominal Exam GI & Abdominal Exam: Soft. absent: Tenderness Assessment and Plan - Assessment and Plan (Free Text) Plan: Assessment leukocytosis due to right ovarian large cyst R/O ovarian cancer R/O infected cyst morbid obesity with BMI 41 Plan Follow up further Construction Pit Worker recommendations - will need biopsy and pathology continue Zosyn and Doxycycline for now; blood cx are negative, follow up urine GC, FTA-ABS - may be switched to PO Vantin and PO Doxycycline for another 7-10 days
[2018-01-08] MEDS ORDERED: Oxycodone/Acetaminophen 5/325 mg Tab PO PRN (15:20)
--- NOTE | 2018-01-08 16:09 | CP.PCM.PN ---
<Leander Sutton - Last Filed: 01/08/18 16:41> Subjective - Date & Time of Evaluation Date of Evaluation: 01/08/18 Time of Evaluation: 16:07 - Subjective Subjective: Leander Sutton D.O PGY-1, Internal Medicine progress note for Dr. Mcdaniel Patient was examined at bedside, no acute overnight events. Patient complains of 10/10 abdominal pain overnight. 0.5mg of dilaudid given at 10PM and 5AM. Denies fevers, chills, chest pain, shortness of breath, and N/V/D. Objective - Vital Signs/Intake and Output Vital Signs (last 24 hours): Temp Pulse Resp BP Pulse Ox 98.6 F 60 20 108/50 L 95 01/08/18 06:00 01/08/18 06:00 01/08/18 06:00 01/08/18 06:00 01/08/18 06:00 Intake and Output: 01/08/18 01/08/18 06:59 18:59 Intake Total 1040 Balance 1040 - Medications Medications: Current Medications Docusate Sodium (Colace) 100 mg PO DAILY [facility] Last Admin: 01/08/18 14:20 Dose: 100 mg Doxycycline Hyclate (Doryx) 100 mg PO Q12 CELESTINE PRN Reason: Protocol Stop: 01/16/18 13:07 Last Admin: 01/08/18 10:31 Dose: 100 mg Sodium Chloride (Sodium Chloride 0.9%) 1,000 mls @ 50 mls/hr IV .Q20H [facility] Last Admin: 01/07/18 22:02 Dose: 50 mls/hr Piperacillin Sod/Tazobactam Sod (Zosyn 3.375 In Ns 100ml) 100 mls @ 200 mls/hr IVPB Q6 CELESTINE PRN Reason: Protocol Stop: 01/15/18 13:07 Last Admin: 01/08/18 12:18 Dose: 200 mls/hr Potassium Phosphate 15 mmole/ (Sodium Chloride) 255 mls @ 42.5 mls/hr IVPB ONCE ONE Stop: 01/08/18 19:40 Last Admin: 01/08/18 15:48 Dose: 42.5 mls/hr Ketorolac Tromethamine (Toradol) 15 mg IVP Q6H PRN PRN Reason: Pain, moderate (4-7) Ondansetron HCl (Zofran Inj) 4 mg IVP Q4H PRN PRN Reason: Nausea/Vomiting Last Admin: 01/08/18 08:27 Dose: 4 mg Oxycodone/Acetaminophen (Percocet 5/325 Mg Tab) 1 tab PO Q4H PRN PRN Reason: Pain, severe (8-10) Stop: 01/11/18 15:21 Pantoprazole Sodium (Protonix Ec Tab) 40 mg PO 0600 CELESTINE Last Admin: 01/08/18 05:24 Dose: 40 mg - Labs Labs: 01/08/18 07:41 01/08/18 07:41 - Constitutional Appears: No Acute Distress - Head Exam Head Exam: ATRAUMATIC, NORMAL INSPECTION - Eye Exam Eye Exam: Normal appearance - ENT Exam ENT Exam: Mucous Membranes Moist - Respiratory Exam Respiratory Exam: Clear to Ausculation Bilateral. absent: Rales, Rhonchi, Wheezes - Cardiovascular Exam Cardiovascular Exam: REGULAR RHYTHM, +S1, +S2. absent: Gallop, Rubs, Murmur - GI/Abdominal Exam GI & Abdominal Exam: Guarding, Soft, Tenderness, Normal Bowel Sounds Additional comments: Very tender to palpation in all quadrants but worse in RLQ - Extremities Exam Extremities Exam: absent: Calf Tenderness, Pedal Edema - Neurological Exam Neurological Exam: Alert, Awake, Oriented x3 - Psychiatric Exam Psychiatric exam: Normal Affect, Normal Mood - Skin Skin Exam: Dry, Normal Color, Warm Assessment and Plan - Assessment and Plan (Free Text) Assessment: Ms. Ibrahim is a 52yo female with no past medical history presenting with abdominal pain. CT was done which reported large pelvic mass ~22cm. Plan: Abdominal pain - Secondary to a large complex adnexal mass - CT abdomen (01/06): right mass from right ovary, measuring 22 x 13.6 x 18cm, suspicious for cystic adenocarcinoma - CA-125 level was not elevated - OB consulted (Dr. Kenney), will require surgical intervention - Pt to follow up at tertiary care center with DRUG CLERK Oncology services. One option for referral is Dr. levy Harding, office number is [phone] - Will need biopsy and pathology - CXR (01/06): No active pulmonary disease, low lung volumes may be related to poor inspiratory effort - EKG (01/08): NSR @61, no ST changes - Pain management: toradol 15mg Q6 for mild to moderate pain, percocet 5/325mg PO Q4 for severe pain Leukocytosis - Most likely secondary to right ovarian large cyst vs ovarian cancer vs infected cyst - WBC elevated, 16.8 today from 19.1- downtrending - ID consulted - c/w zosyn and doxycycline - blood cultures are negative - follow up urine chlamydia/gonorrhea - FTA-ABS: non-reactive - RPR: non-reactive - HIV 1&2: non-reactive - May switch to PO Vantin and PO Doxycycline for another 7-10 days Constipation - most likely secondary to poor PO intake and opioid use - started Colace Hypokalemia, resolved - Potassium repleted - will continue to monitor GI/DVT prophylaxis - Protonix - SCD's Patient case reviewed with and plan approved by attending physician, Dr. Mcdaniel. <Maryann Mcdaniel - Last Filed: 01/08/18 20:45> Objective - Vital Signs/Intake and Output Vital Signs (last 24 hours): Temp Pulse Resp BP Pulse Ox 98.6 F 83 20 106/45 L 97 01/08/18 18:00 01/08/18 18:00 01/08/18 18:00 01/08/18 18:00 01/08/18 18:00 - Medications Medications: Current Medications Docusate Sodium (Colace) 100 mg PO DAILY [facility] Last Admin: 01/08/18 14:20 Dose: 100 mg Doxycycline Hyclate (Doryx) 100 mg PO Q12 CELESTINE PRN Reason: Protocol Stop: 01/16/18 13:07 Last Admin: 01/08/18 10:31 Dose: 100 mg Sodium Chloride (Sodium Chloride 0.9%) 1,000 mls @ 50 mls/hr IV .Q20H [facility] Last Admin: 01/08/18 18:37 Dose: 50 mls/hr Piperacillin Sod/Tazobactam Sod (Zosyn 3.375 In Ns 100ml) 100 mls @ 200 mls/hr IVPB Q6 CELESTINE PRN Reason: Protocol Stop: 01/15/18 13:07 Last Admin: 01/08/18 18:37 Dose: 200 mls/hr Ketorolac Tromethamine (Toradol) 15 mg IVP Q6H PRN PRN Reason: Pain, moderate (4-7) Ondansetron HCl (Zofran Inj) 4 mg IVP Q4H PRN PRN Reason: Nausea/Vomiting Last Admin: 01/08/18 08:27 Dose: 4 mg Oxycodone/Acetaminophen (Percocet 5/325 Mg Tab) 1 tab PO Q4H PRN PRN Reason: Pain, severe (8-10) Stop: 01/11/18 15:21 Pantoprazole Sodium (Protonix Ec Tab) 40 mg PO 0600 [facility]INE Last Admin: 01/08/18 05:24 Dose: 40 mg - Labs Labs: 01/08/18 07:41 01/08/18 07:41 Attending/Attestation - Attestation I have personally seen and examined this patient.: Yes I have fully participated in the care of the patient.: Yes I have reviewed all pertinent clinical information, including history, physical exam and plan: Yes Notes (Text): Patient seen and examined by me at 11:10AM with resident. Case including HPI, physical exam, and physical assessment and plan discussed with resident. Agree with above with following additions/corrections. Patient states she is feeling ok. States she feels better than yesterday. Abdominal pain has removed. Pain is worse on right side but radiates to left. Worse with movement. Pain medications are helping. Patient also with loss of appetite. No associated nausea or vomiting. No fevers or chills. No headaches or dizziness. No dysuria. No chest pain or shortness of breath. Physical exam: Gen: Awake and alert lying in bed in no acute distress HEENT: Normocephalic atraumatic. Extraocular muscles intact, pupils equal reactive. Oropharynx is pink and moist, no pharyngeal erythema or exudate appreciated. Neck is supple. Cardiovascular: Normal rhythm. Lisa S1, S2. No murmurs, rubs, or gallops appreciated Pulmonary: Normal respiratory effort. No rhonchi, rales or wheezing appreciated. Gastrointestinal: Soft, obese abdomen. Positive generalized tenderness with worse right abdominal tenderness with mild palpation. Positive bowel sounds all 4 quadrants, no guarding Musculoskeletal: Moves all extremities, no calf tenderness Central nervous system: AAOx3 Dermatologic: Skin warm and dry Assessment and plan: Patient is a 52 year old female with no significant past medical history that presented to the emergency room with abdominal pain. Patient found to have large right ovarian mass. 1. Right cystic mass, likely arising from right ovary. ?Infected cystic mass vs ovarian cystaadenocarcinoma. Gynecology recommendations appreciated. Patient will need outpatient follow up. ID following, recommendations appreciated. Patient to continue Zosyn and doxycycline. Can be switched to PO Vantin and doxycycline. Continue with pain management. 2. Leukocytosis. ?Infected cystic mass. ID following, recommendations appreciated. Blood culture negative. Urine culture negative. Patient afebrile. RPR negative. HIV negative. FTA-ABS negative. Continue Zosyn and doxycycline. Can be switched to PO Vantin and doxycycline 3. Constipation. Started on colace. Monitor for bowel movement 4. Hypokalemia. Patient given replacement. Resolved. Continue to monitor. 5. GI and DVT prophylaxis. Protonix and SCDS. Case was discussed in detail with patient and chief medical technologist at bedside regarding current diagnosis and treatment plan
[2018-01-08] MEDS: Sodium Chloride 0.9% 1,000 ML IV SCH (18:37)
[2018-01-09] MEDS: Piperacillin/Tazobact 3.375 gm 100 ML IVPB SCH (05:25)
[2018-01-09] MEDS: Pantoprazole 40 mg EC Tab PO SCH (05:26)
[2018-01-09 06:39] LABS: BASO # 0.01 K/mm3 (0.0-2.0); BASO % 0.1 % (0.0-3.0); EOS # 0.1 (0.0-0.7); EOS % 0.3 % (1.5-5.0); GRAN # 12.71 (1.4-6.5); GRAN % 82.9 % (50.0-68.0); HEMOGLOBIN 12.4 g/dL (12.0-16.0); LYMPH # 1.5 (1.2-3.4); LYMPH % 10.1 % (22.0-35.0); MEAN CELL VOLUME 87.1 fl (80.0-105.0); MEAN CORPUSCULAR HEMOGLOBIN 28.1 pg (25.0-35.0); MEAN CORPUSCULAR HGB CONC 32.3 g/dl (31.0-37.0); MONO % 6.6 % (1.0-6.0); RBC 4.41 10^6/uL (3.5-6.1); RED CELL DISTRIBUTION WIDTH 13.6 % (11.5-14.5); WHITE BLOOD COUNT 15.3 10^3/ul (4.5-11.0)
[2018-01-09 06:49] LABS: ALB/GLOB RATIO 1.1 (1.1-1.8); ALBUMIN 3.5 g/dL (3.0-4.8); ALT/SGPT 20 U/L (7-56); AST/SGOT 16 U/L (14-36); BLOOD UREA NITROGEN 9 mg/dL (7-21); CALCIUM 8.1 mg/dL (8.4-10.5); GFR AFRICAN-AMERICAN > 60; GFR NON-AFRICAN AMERICAN > 60
[2018-01-09] MEDS ORDERED: Potassium Phosphate 3 mmol/ml Inj IV ONE (07:08)
[2018-01-09] MEDS ORDERED: Potassium Phosphate 15 MMOLE in Sodium Chloride 0.9% 250 ML IVPB ONE (07:15)
[2018-01-09 07:57] VITALS: BP 106/50; TEMP 98.3; O2SAT 93
[2018-01-09 11:31] VITALS: PULSE 68
--- NOTE | 2018-01-09 11:59 | CP.PCM.DIS ---
<Jay Mireles - Last Filed: 01/09/18 11:37> Provider - Provider Date of Admission: 01/07/18 00:25 Attending physician: Maryann Mcdaniel DO Primary care physician: Roopa Laws MD Consults: ID: Dave STEPHYN: [place] Time Spent in preparation of Discharge (in minutes): 45 Diagnosis - Discharge Diagnosis (1) Ovarian mass, right Status: Acute Priority: High Hospital Course - Lab Results Lab Results: Micro Results 01/07/18 02:10 Blood Blood Culture - Preliminary NO GROWTH AFTER 48 HOURS 01/07/18 01:45 Blood Blood Culture - Preliminary NO GROWTH AFTER 48 HOURS 01/07/18 10:00 Urine Urine Culture - Final No Growth (<1,000 CFU/ML) Most Recent Lab Values WBC 15.3 10^3/ul (4.5-11.0) H 01/09/18 06:00 RBC 4.41 10^6/uL (3.5-6.1) 01/09/18 06:00 Hgb 12.4 g/dL (12.0-16.0) 01/09/18 06:00 Hct 38.4 % (36.0-48.0) 01/09/18 06:00 MCV 87.1 fl (80.0-105.0) 01/09/18 06:00 MCH 28.1 pg (25.0-35.0) 01/09/18 06:00 MCHC 32.3 g/dl (31.0-37.0) 01/09/18 06:00 RDW 13.6 % (11.5-14.5) 01/09/18 06:00 Plt Count 212 10^3/uL (120.0-450.0) 01/09/18 06:00 MPV 11.0 fl (7.0-11.0) 01/09/18 06:00 Gran % 82.9 % (50.0-68.0) H 01/09/18 06:00 Lymph % (Auto) 10.1 % (22.0-35.0) L 01/09/18 06:00 [place] % (Auto) 6.6 % (1.0-6.0) H 01/09/18 06:00 Eos % (Auto) 0.3 % (1.5-5.0) L 01/09/18 06:00 Baso % (Auto) 0.1 % (0.0-3.0) 01/09/18 06:00 Gran # 12.71 (1.4-6.5) H 01/09/18 06:00 Lymph # (Auto) 1.5 (1.2-3.4) 01/09/18 06:00 [place] # (Auto) 1.0 (0.1-0.6) H 01/09/18 06:00 Eos # (Auto) 0.1 (0.0-0.7) 01/09/18 06:00 Baso # (Auto) 0.01 K/mm3 (0.0-2.0) 01/09/18 06:00 Sodium 142 mmol/L (132-148) 01/09/18 06:00 Potassium 3.6 mmol/L (3.6-5.0) 01/09/18 06:00 Chloride 105 mmol/L (98-107) 01/09/18 06:00 Carbon Dioxide 27 mmol/L (21-33) 01/09/18 06:00 Anion Gap 13 (10-20) 01/09/18 06:00 BUN 9 mg/dL (7-21) 01/09/18 06:00 Creatinine 0.6 mg/dl (0.7-1.2) L 01/09/18 06:00 Est GFR ( Amer) > 60 01/09/18 06:00 Est GFR (Non-Af Amer) > 60 01/09/18 06:00 POC Glucose (mg/dL) 105 mg/dL (65-110) 01/08/18 16:03 Random Glucose 97 mg/dL (70-110) 01/09/18 06:00 Hemoglobin A1c 5.8 % (4.2-6.5) 01/08/18 07:41 Calcium 8.1 mg/dL (8.4-10.5) L 01/09/18 06:00 Phosphorus 2.1 mg/dL (2.5-4.5) L 01/09/18 06:00 Magnesium 1.9 mg/dL (1.7-2.2) 01/09/18 06:00 Total Bilirubin 0.7 mg/dL (0.2-1.3) 01/09/18 06:00 AST 16 U/L (14-36) 01/09/18 06:00 ALT 20 U/L (7-56) 01/09/18 06:00 Alkaline Phosphatase 63 U/L (38-126) 01/09/18 06:00 Lactate Dehydrogenase 435 U/L (333-699) 01/07/18 12:30 Total Creatine Kinase 36 U/L (35-230) 01/07/18 12:30 Troponin I < 0.01 ng/mL 01/07/18 12:30 Total Protein 6.5 g/dL (5.8-8.3) 01/09/18 06:00 Albumin 3.5 g/dL (3.0-4.8) 01/09/18 06:00 Globulin 3.0 gm/dL 01/09/18 06:00 Albumin/Globulin Ratio 1.1 (1.1-1.8) 01/09/18 06:00 Lipase 52 U/L (23-300) 01/06/18 22:13 CA 125 Antigen 6.3 U/mL (0-35) 01/07/18 07:00 TSH 3rd Generation 1.21 mIU/mL (0.46-4.68) 01/08/18 07:41 Urine Color Yellow (YELLOW) 01/07/18 10:00 Urine Appearance Sl cloudy (CLEAR) 01/07/18 10:00 Urine pH 6.0 (4.7-8.0) 01/07/18 10:00 Ur Specific [place] 1.025 (1.005-1.035) 01/07/18 10:00 Urine Protein Trace mg/dL (<30 mg/dL) H 01/07/18 10:00 Urine Glucose (UA) Negative mg/dL (NEGATIVE) 01/07/18 10:00 Urine Ketones Negative mg/dL (NEGATIVE) 01/07/18 10:00 Urine Blood Small (NEGATIVE) H 01/07/18 10:00 Urine Nitrate Negative (NEGATIVE) 01/07/18 10:00 Urine Bilirubin Negative (NEGATIVE) 01/07/18 10:00 Urine Urobilinogen 0.2 E.U./dL (<1 E.U./dL) 01/07/18 10:00 Ur Leukocyte Esterase Negative All/uL (NEGATIVE) 01/07/18 10:00 Urine RBC 0 - 2 /hpf (0-2) 01/07/18 10:00 Urine WBC 0 - 2 /hpf (0-6) 01/07/18 10:00 Ur Epithelial Cells 1 - 3 /hpf (0-5) 01/07/18 10:00 Amorphous Sediment Small 01/07/18 10:00 Urine Bacteria Large (NEG) 01/07/18 10:00 Hyaline Casts 0 - 2 /hpf 01/06/18 22:26 RPR Nonreactive (NONREACTIVE) 01/07/18 13:00 T.pallidum Ab (FTA-ABS) Nonreactive (Nonreactive) 01/07/18 13:00 HIV 1&2 Ag/Ab, 4th Gen Nonreactive (Nonreactive) 01/07/18 13:00 - Hospital Course Hospital Course: Pt is a 52 yo F with no significant PMH presented to [facility] due to worsening abdominal pain, nausea, and vomiting. Patient was evaluated in the ED and was found to have a mass in the right ovary, measuring 22 x 13.6 x 18 cm, suspicious for cystic adenocarcinoma. Thus, patient was admitted for evaluation and treatment of this mass. OBGYN was consulted, who advised that patient will need biopsy and surgical intervention at a tertiary care center with gynecology- oncology. CA-125 was not elevated. ID was consulted due to leukocytosis. Increased white blood cell count was likely secondary to the ovarian mass. Blood cultures were negative. HIV, RPR, and FTA-ABS were negative. Chlamydia/ gonorrhea is pending and will follow up with patient if results are abnormal. Patient was initially treated with IV antibiotics, but was eventually transitioned to oral antibiotics per ID. Electrolytes were monitored and repleted as needed. Hospital course was also significant for constipation, which may have been 2/2 opioid use, ovarian mass, poor PO intake, and/or minimal ambulation. Today, the patient was seen and examined at bedside. No acute overnight events. As patient was hemodynamically stable and cleared by all consultants, she was discharged. Patient was advised to follow up with her gynecology-oncology and primary doctor outpatient. Patient was given rx for antibiotics per ID recommendations and oral pain medications. Patient acknowledged and agreed to plan. Case was discussed with all constants, who agreed to plan. Discharge Medications - Vantin 200 mg PO BID x8 days - Doxycycline 100 mg PO BID x8 days - Percocet 5-325 mg PO q6h #12 Discharge Exam - Head Exam Head Exam: ATRAUMATIC, NORMAL INSPECTION - Eye Exam Eye Exam: EOMI, Normal appearance, PERRL Pupil Exam: NORMAL ACCOMODATION, PERRL - ENT Exam ENT Exam: Mucous Membranes Moist - Respiratory Exam Respiratory Exam: Clear to PA & Lateral. absent: Rales, Rhonchi, Wheezes - Cardiovascular Exam Cardiovascular Exam: RRR. absent: Diastolic murmur, Gallop, Rubs, Systolic Murmur - GI/Abdominal Exam GI & Abdominal Exam: Soft, Tenderness. absent: Distended, Firm, Guarding, Rebound, Rigid - Extremities Exam Extremities exam: normal inspection - Back Exam Back exam: NORMAL INSPECTION - Neurological Exam Neurological exam: Alert, CN II-XII Intact, Normal Gait, Oriented x3 - Psychiatric Exam Psychiatric exam: Normal Affect, Normal Mood - Skin Skin Exam: Dry, Intact, Normal Color, Warm Discharge Plan - Discharge Medications Prescriptions: Cefpodoxime [Vantin] 200 mg PO BID 8 Days tab Doxycycline Hyclate [Doryx] 100 mg PO Q12 8 Days cap oxyCODONE/Acetaminophen [Percocet 5/325 mg Tab] 1 ea PO Q6H PRN #12 tab PRN Reason: Pain, Severe (8-10) - Follow Up Plan Condition: STABLE Disposition: HOME/ ROUTINE Instructions: Ovarian Cysts, Ovarian Cancer, Acute Abdomen (Belly Pain), Adult (DC), Leukocytosis (DC) Additional Instructions: - Follow up with primary doctor within 3-5 days - Follow up with gynecology-oncology within 3-5 days, Dr. levy Harding , office number is [phone] - Complete entire course of oral antibiotic - Use Percocet as needed for pain as instructed - Proceed to ED if symptoms worsen Referrals: Roopa Escamilla MD [Primary Care Provider] - <Maryann Mcdaniel - Last Filed: 01/09/18 17:29> Provider - Provider Date of Admission: 01/07/18 00:25 Attending physician: Maryann Mcdaniel DO Primary care physician: Roopa Laws MD Hospital Course - Lab Results Lab Results: Micro Results 01/07/18 02:10 Blood Blood Culture - Preliminary NO GROWTH AFTER 48 HOURS 01/07/18 01:45 Blood Blood Culture - Preliminary NO GROWTH AFTER 48 HOURS 01/07/18 10:00 Urine Urine Culture - Final No Growth (<1,000 CFU/ML) Most Recent Lab Values WBC 15.3 10^3/ul (4.5-11.0) H 01/09/18 06:00 RBC 4.41 10^6/uL (3.5-6.1) 01/09/18 06:00 Hgb 12.4 g/dL (12.0-16.0) 01/09/18 06:00 Hct 38.4 % (36.0-48.0) 01/09/18 06:00 MCV 87.1 fl (80.0-105.0) 01/09/18 06:00 MCH 28.1 pg (25.0-35.0) 01/09/18 06:00 MCHC 32.3 g/dl (31.0-37.0) 01/09/18 06:00 RDW 13.6 % (11.5-14.5) 01/09/18 06:00 Plt Count 212 10^3/uL (120.0-450.0) 01/09/18 06:00 MPV 11.0 fl (7.0-11.0) 01/09/18 06:00 Gran % 82.9 % (50.0-68.0) H 01/09/18 06:00 Lymph % (Auto) 10.1 % (22.0-35.0) L 01/09/18 06:00 [place] % (Auto) 6.6 % (1.0-6.0) H 01/09/18 06:00 Eos % (Auto) 0.3 % (1.5-5.0) L 01/09/18 06:00 Baso % (Auto) 0.1 % (0.0-3.0) 01/09/18 06:00 Gran # 12.71 (1.4-6.5) H 01/09/18 06:00 Lymph # (Auto) 1.5 (1.2-3.4) 01/09/18 06:00 [place] # (Auto) 1.0 (0.1-0.6) H 01/09/18 06:00 Eos # (Auto) 0.1 (0.0-0.7) 01/09/18 06:00 Baso # (Auto) 0.01 K/mm3 (0.0-2.0) 01/09/18 06:00 Sodium 142 mmol/L (132-148) 01/09/18 06:00 Potassium 3.6 mmol/L (3.6-5.0) 01/09/18 06:00 Chloride 105 mmol/L (98-107) 01/09/18 06:00 Carbon Dioxide 27 mmol/L (21-33) 01/09/18 06:00 Anion Gap 13 (10-20) 01/09/18 06:00 BUN 9 mg/dL (7-21) 01/09/18 06:00 Creatinine 0.6 mg/dl (0.7-1.2) L 01/09/18 06:00 Est GFR ( Amer) > 60 01/09/18 06:00 Est GFR (Non-Af Amer) > 60 01/09/18 06:00 POC Glucose (mg/dL) 101 mg/dL (65-110) 01/09/18 07:11 Random Glucose 97 mg/dL (70-110) 01/09/18 06:00 Hemoglobin A1c 5.8 % (4.2-6.5) 01/08/18 07:41 Calcium 8.1 mg/dL (8.4-10.5) L 01/09/18 06:00 Phosphorus 2.1 mg/dL (2.5-4.5) L 01/09/18 06:00 Magnesium 1.9 mg/dL (1.7-2.2) 01/09/18 06:00 Total Bilirubin 0.7 mg/dL (0.2-1.3) 01/09/18 06:00 AST 16 U/L (14-36) 01/09/18 06:00 ALT 20 U/L (7-56) 01/09/18 06:00 Alkaline Phosphatase 63 U/L (38-126) 01/09/18 06:00 Lactate Dehydrogenase 435 U/L (333-699) 01/07/18 12:30 Total Creatine Kinase 36 U/L (35-230) 01/07/18 12:30 Troponin I < 0.01 ng/mL 01/07/18 12:30 Total Protein 6.5 g/dL (5.8-8.3) 01/09/18 06:00 Albumin 3.5 g/dL (3.0-4.8) 01/09/18 06:00 Globulin 3.0 gm/dL 01/09/18 06:00 Albumin/Globulin Ratio 1.1 (1.1-1.8) 01/09/18 06:00 Lipase 52 U/L (23-300) 01/06/18 22:13 CA 125 Antigen 6.3 U/mL (0-35) 01/07/18 07:00 TSH 3rd Generation 1.21 mIU/mL (0.46-4.68) 01/08/18 07:41 Urine Color Yellow (YELLOW) 01/07/18 10:00 Urine Appearance Sl cloudy (CLEAR) 01/07/18 10:00 Urine pH 6.0 (4.7-8.0) 01/07/18 10:00 Ur Specific [place] 1.025 (1.005-1.035) 01/07/18 10:00 Urine Protein Trace mg/dL (<30 mg/dL) H 01/07/18 10:00 Urine Glucose (UA) Negative mg/dL (NEGATIVE) 01/07/18 10:00 Urine Ketones Negative mg/dL (NEGATIVE) 01/07/18 10:00 Urine Blood Small (NEGATIVE) H 01/07/18 10:00 Urine Nitrate Negative (NEGATIVE) 01/07/18 10:00 Urine Bilirubin Negative (NEGATIVE) 01/07/18 10:00 Urine Urobilinogen 0.2 E.U./dL (<1 E.U./dL) 01/07/18 10:00 Ur Leukocyte Esterase Negative All/uL (NEGATIVE) 01/07/18 10:00 Urine RBC 0 - 2 /hpf (0-2) 01/07/18 10:00 Urine WBC 0 - 2 /hpf (0-6) 01/07/18 10:00 Ur Epithelial Cells 1 - 3 /hpf (0-5) 01/07/18 10:00 Amorphous Sediment Small 01/07/18 10:00 Urine Bacteria Large (NEG) 01/07/18 10:00 Hyaline Casts 0 - 2 /hpf 01/06/18 22:26 RPR Nonreactive (NONREACTIVE) 01/07/18 13:00 T.pallidum Ab (FTA-ABS) Nonreactive (Nonreactive) 01/07/18 13:00 HIV 1&2 Ag/Ab, 4th Gen Nonreactive (Nonreactive) 01/07/18 13:00 Attending/Attestation - Attestation I have personally seen and examined this patient.: Yes I have fully participated in the care of the patient.: Yes I have reviewed all pertinent clinical information, including history, physical exam and plan: Yes Notes (Text): Patient seen and examined by me with resident at 09:30AM. Case including discharge plan discussed with resident. Agree with above with following additions/corrections Patient is a 52 year old female with no significant past medical history that presented to the emergency room with abdominal pain. Please see dictated H&P for further details. Patient was admitted with abdominal pain. Patient was found have a large right ovarian mass. CT abdomen and pelvis per radiologist showed a large cystic mass that appears to arise from the right ovary; this measures 22 mm wide by 13.6 cm AP by 18 cm in height; this is suspicious for an ovarian cystadenocarcinoma. Case was discussed with surgery who felt that this was a gynecological diagnosis. CLOTHING WORKER was consulted. Per CLOTHING WORKER patient should have follow-up at tertiary care center with [employer] oncology services. Patient was given an option for referral to Dr. Levy Harding, Office number is [phone]. Patient was also found have leukocytosis. ID was consulted. Questionable infected cyst. She was started on Zosyn and Doxy. Patient was cleared for discharge on by mouth Vantin and doxycycline by infectious disease doctor. Leukocytosis improved. Patient's abdominal pain improved. FTA-ABS, HIV, and RPR were found to be non-reacitve. Patient was encouraged to increase by mouth diet and to ambulate as patient was not having all movements. Patient was advised to take [id number] stool softener or laxative if continues to have constipation at home. Patient also had an episode of hypokalemia which resolved with replacement. All symptoms improved upon discharge. Patient was cleared for discharge by all consultants. Patient was strongly encouraged to follow up as soon as possible with gynecology for further workup and treatment of cyst. Physical exam: Gen: Awake and alert lying in bed in no acute distress HEENT: Normocephalic atraumatic. Extraocular muscles intact, pupils equal reactive. Oropharynx is pink and moist, no pharyngeal erythema or exudate appreciated. Neck is supple. Cardiovascular: Normal rhythm. Lisa S1, S2. No murmurs, rubs, or gallops appreciated Pulmonary: Normal respiratory effort. No rhonchi, rales or wheezing appreciated. Gastrointestinal: Soft, obese abdomen. Positive right abdominal tenderness improved. Positive bowel sounds all 4 quadrants, no guarding Musculoskeletal: Moves all extremities, no calf tenderness Central nervous system: AAOx3 Dermatologic: Skin warm and dry Please see chart for full details. Follow up instructions. Patient to follow-up with primary care doctor within 3- 5 days. Patient follow-up with gynecology oncology within 3-5 days. Patient may call Dr. Levy Harding, office number is [phone]. Patient to complete antibiotics. Patient was given pain medications on discharge. All medications were provided to the patient. All instructions explained to patient in detail. Patient both understands and agrees to all instructions. Time spent in discharging the patient including chart review, medication reconciliation, discussion with the patient, medical office worker, consultants, and nursing staff was approximately 40 minutes.
--- NOTE | 2018-01-09 12:24 | CP.PCM.PN ---
Subjective - Date & Time of Evaluation Date of Evaluation: 01/09/18 Time of Evaluation: 10:35 - Subjective Subjective: Still with abdominal pain but a little less, no nausea, no vomiting. Objective - Vital Signs/Intake and Output Vital Signs (last 24 hours): Temp Pulse Resp BP Pulse Ox 98.6 F 72 20 106/45 L 97 01/08/18 18:00 01/09/18 06:00 01/08/18 18:00 01/08/18 18:00 01/08/18 18:00 Intake and Output: 01/09/18 01/09/18 06:59 18:59 Intake Total 480 Output Total 200 Balance 280 - Medications Medications: Current Medications Docusate Sodium (Colace) 100 mg PO DAILY [facility] Last Admin: 01/08/18 14:20 Dose: 100 mg Doxycycline Hyclate (Doryx) 100 mg PO Q12 [facility] PRN Reason: Protocol Stop: 01/16/18 13:07 Last Admin: 01/08/18 21:27 Dose: 100 mg Sodium Chloride (Sodium Chloride 0.9%) 1,000 mls @ 50 mls/hr IV .Q20H [facility] Last Admin: 01/08/18 18:37 Dose: 50 mls/hr Piperacillin Sod/Tazobactam Sod (Zosyn 3.375 In Ns 100ml) 100 mls @ 200 mls/hr IVPB Q6 [facility] PRN Reason: Protocol Stop: 01/15/18 13:07 Last Admin: 01/09/18 05:25 Dose: 200 mls/hr Ketorolac Tromethamine (Toradol) 15 mg IVP Q6H PRN PRN Reason: Pain, moderate (4-7) Last Admin: 01/08/18 20:34 Dose: 15 mg Ondansetron HCl (Zofran Inj) 4 mg IVP Q4H PRN PRN Reason: Nausea/Vomiting Last Admin: 01/08/18 08:27 Dose: 4 mg Oxycodone/Acetaminophen (Percocet 5/325 Mg Tab) 1 tab PO Q4H PRN PRN Reason: Pain, severe (8-10) Stop: 01/11/18 15:21 Last Admin: 01/09/18 05:29 Dose: 1 tab Pantoprazole Sodium (Protonix Ec Tab) 40 mg PO 0600 [facility] Last Admin: 01/09/18 05:26 Dose: 40 mg - Labs Labs: 01/09/18 06:00 01/09/18 06:00 - Constitutional Appears: Non-toxic, Chronically Ill - Head Exam Head Exam: NORMAL INSPECTION - Respiratory Exam Respiratory Exam: Decreased Breath Sounds - Cardiovascular Exam Cardiovascular Exam: +S1, +S2 - GI/Abdominal Exam GI & Abdominal Exam: Soft. absent: Tenderness Assessment and Plan - Assessment and Plan (Free Text) Plan: Assessment leukocytosis due to right ovarian large cyst R/O ovarian cancer R/O infected cyst morbid obesity with BMI 41 Plan patient to be transferred to another facility for biopsy and possible removal of the cyst on Zosyn and Doxycycline for now; blood cx are negative, follow up urine GC; RPR , FTA-ABS and HIV tests are negative - may be switched to PO Vantin and PO Doxycycline for another 7-10 days - discussed with medical team
[2018-01-09] MEDS ORDERED: Potassium Chloride 40 mEq/30 ml LIQ UD PO ONE (17:04)
== END 2018-01-09 11:30 | disposition home or self-care (01) | DRG 760 ==
LOC: ED 20:53 → ERH 01-07 00:25 → 3RNO 01-07 03:38
PROVIDERS: ADMIT Internal Medicine; ATTEND Hospitalist
DX: N83.9 Noninflammatory disorder of ovary, fallopian tube and broad ligament, unspecified (principal); Z68.41 Body mass index [BMI] 40.0-44.9, adult; D72.829 Elevated white blood cell count, unspecified; I10 Essential (primary) hypertension; E66.01 Morbid (severe) obesity due to excess calories; E87.6 Hypokalemia; K59.00 Constipation, unspecified

== ENCOUNTER 2018-08-16 15:17 | Emergency (ER) | payer MEDICAID ==
[2018-08-16 15:27] VITALS: BP 108/64; PULSE 59; RESP 18; TEMP 98.4; O2SAT 98
--- NOTE | 2018-08-16 15:37 | ED PDOC ---
Arrival/HPI - General Chief Complaint: Abnormal Skin Integrity Time Seen by Provider: 08/16/18 15:26 Historian: Patient - History of Present Illness Time/Duration: Other (3 days) Symptom Onset: Gradual Symptom Course: Worsening Quality: Aching Severity Level: Moderate Activities at Onset: Rest Associated Symptoms (Text): 08/16/18 15:35 Patient complains of pain and swelling in her dominant right little finger volar middle phalanx. She denies any injury or trauma. Denies a foreign body. There is swelling and tenderness. No erythema. No warmth. Full range of motion. There is not pain with flexion and extension. No signs of tenosynovitis. There appears to be a small abscess present. No foreign body is seen. Past Medical History - Infectious Disease Hx of Infectious Diseases: None - Cardiac Hx Cardiac Disorders: Yes Hx Hypotension: Yes - Musculoskeletal/Rheumatological Hx Falls: No - Psychiatric Hx Substance Use: No Family/Social History - Physician Review Nursing Documentation Reviewed: Yes Family/Social History: Unknown Family HX Smoking Status: Former Smoker Hx Alcohol Use: No Hx Substance Use: No Allergies/Home Meds Allergies/Adverse Reactions: Allergies No Known Allergies Allergy (Verified 08/16/18 15:27) Review of Systems - Physician Review All systems were reviewed & negative as marked: Yes Physical Exam Vital Signs Temp Pulse Resp BP Pulse Ox 08/16/18 15:25 98.4 F 59 L 18 108/64 98 Temperature: Afebrile Blood Pressure: Normal Pulse: Regular Respiratory Rate: Normal Appearance: Positive for: Well-Appearing, Non-Toxic, Uncomfortable Pain Distress: Mild Mental Status: Positive for: Alert and Oriented X 3 - Systems Exam Upper Extremity: Present: Normal ROM, NORMAL PULSES, Tenderness, Swelling, Neurovascularly Intact. No: Normal Inspection, Edema, Erythema, Deformity, Other (Right little finger volar middle phalanx swelling tenderness with no erythema or warmth. Full range of motion.) Medical Decision Making ED Course and Treatment: 08/16/18 16:36 Foreign body removal. The right fifth finger was prepped and draped in usual sterile fashion using Betadine and normal saline solution. 1% plain lidocaine digital block was administered. Good anesthesia was obtained. The area was opened with a #11 blade. Purulent material was expressed. There was a small abscess present which was drained. 2 metal foreign bodies were removed manually. Sterile dressing was applied. Tolerated the procedure well. - RAD Interpretation Radiology Orders: 08/16/18 15:33 HAND RIGHT 5TH DIGIT (FINGER) [RAD] Stat X-ray little finger 3 view shows a positive foreign body. Follow-up x-ray shows 2 foreign bodies have been removed. Instructor Decorating: ED Physician Disposition/Present on Arrival - Present on Arrival Any Indicators Present on Arrival: No History of DVT/PE: No History of Uncontrolled Diabetes: No Urinary Catheter: No History of Decub. Ulcer: No History Surgical Site Infection Following: None - Disposition Have Diagnosis and Disposition been Completed?: Yes Diagnosis: Foreign body finger-inf, Abscess of finger Disposition: HOME/ ROUTINE Disposition Time: 16:38 Patient Plan: Discharge Patient Problems: Current Active Problems Problem Status Onset Abscess of finger Acute Foreign body finger-inf Acute Condition: IMPROVED Discharge Instructions (ExitCare): Abscess Incision and Drainage, Removal of Foreign Body in Skin Additional Instructions: Keep clean and dry. Wound check in 2 days. Follow-up with PMD. Follow-up in ER as needed. Prescriptions: Amoxicillin/Clavulanate [Augmentin 875 MG-125 MG] 1 tab PO Q12 #20 tab Forms: [employer] (Par[place]ayan), WORK NOTE
[2018-08-16] MEDS ORDERED: Lidocaine 1% 5ml Abboject ONE (16:07)
[2018-08-16] MEDS ORDERED: Lidocaine 1% Inj (20ml) ONE (16:08)
--- NOTE | 2018-08-16 16:14 | RAD ---
Date of service: 08/16/2018 PROCEDURE: Right small finger radiographs. HISTORY: pain/FB COMPARISON: None. TECHNIQUE: AP radiograph of the right hand, as well as spot oblique and lateral images of small finger were obtained. FINDINGS: RIGHT SMALL FINGER: There is no acute displaced fracture or bone destruction. Remainder of the right hand (as seen on the AP view) grossly unremarkable. JOINTS: Normal. SOFT TISSUES: There is severe soft tissue swelling in the little finger. There are 2 discrete 2 mm radiopaque foreign bodies in the palmar soft tissues of the little finger at the level of the middle phalanx. OTHER FINDINGS: None. IMPRESSION: Two discrete 2 mm radiopaque foreign bodies in the palmar soft tissues of the little finger at the level of the middle phalanx. Diffuse soft tissue swelling in the little finger. No acute fracture or dislocation.
--- NOTE | 2018-08-16 16:45 | RAD ---
Date of service: 08/16/2018 PROCEDURE: Right small finger radiographs. HISTORY: FB COMPARISON: None. TECHNIQUE: AP radiograph of the right hand, as well as spot oblique and lateral images of small finger were obtained. FINDINGS: RIGHT SMALL FINGER: Normal right small finger, without fracture or focal lesion. Remainder of the right hand (as seen on the AP view) grossly unremarkable. JOINTS: Normal. SOFT TISSUES: Normal. No radiopaque foreign body. OTHER FINDINGS: None. IMPRESSION: No acute fracture or dislocation. No radiopaque foreign body.
[2018-08-16] MEDS ORDERED: Bacitracin 500 Units/gm Oint Foilpak UD ONE (16:49)
== END 2018-08-16 16:57 | disposition home or self-care (01) ==
LOC: ED 15:17
DX: L02.511 Cutaneous abscess of right hand (principal); S60.456A Superficial foreign body of right little finger, initial encounter

== ENCOUNTER 2018-09-24 14:49 | Outpatient (CLI) | payer MEDICAID | END 2018-09-24 14:50 | disposition home or self-care (01) | LOC: CARDIO 14:49 ==